=== PATIENT | female | born 1975 | race Two or more races ===

== ENCOUNTER 2021-05-22 17:37 | Inpatient (IN) | payer BC ==
[~2021-05-22] VITALS: Ht 152.4 cm; Wt 70.3 kg
[2021-05-22 18:22] LABS: *BILIRUBIN,URIN 1+ (NEGATIVE); *CLARITY,URINE CLEAR (CLEAR); *KETONES,URINE TRACE (NEGATIVE); *UROBILINOGEN,URINE 0.2 E.U./dl (NORMAL); LEUKOCYTE ESTERASE ,URINE NEGATIVE (NEGATIVE); NITRITE, URINE NEGATIVE (NEGATIVE); PH,URINE 5.5 (5.0-8.0); UGLUCOSE NEGATIVE (NEGATIVE)
[2021-05-22 18:24] LABS: *BLOOD, URINE TRACE INTACT (NEGATIVE); *COLOR,URINE DARK YELLOW (YELLOW)
[2021-05-22 18:33] LABS: *URINE HCG, QUAL NEGATIVE (NEGATIVE); BACTERIA,URINE FEW /HPF (NONE SEEN); SQUAMOUS EPITHELIAL CELL,UR FEW /HPF (NONE SEEN); WBC,URINE 0-3 /HPF (0-3)
--- NOTE | 2021-05-22 20:22 | NUR ---
ROOM AVAILABLE NOW IN THE ER. PATIENT PLACED IN ROOM 2B.
--- NOTE | 2021-05-22 20:25 | NUR ---
DR TOSCANO INTO EVAL PATIENT.
[2021-05-22] MEDS ORDERED: IV D5/ 0.9% NACL 1,000 ML IV ONE (20:45)
[2021-05-22] MEDS ORDERED: SWABABLE VALVE TRANSFER SET EA MC ONE (20:54)
[2021-05-22] MEDS ORDERED: IV NORMAL SALINE 250 ML IV ONE (20:54)
[2021-05-22] MEDS ORDERED: IOHEXOL 300MG/ML 100 ML INFUS..BTL ONE (20:54)
[2021-05-22 21:39] LABS: HEMATOCRIT 41.5 % (31.2-41.9); MEAN CORPUSCULAR HEMOGLOBIN 31.1 uug (24.7-32.8); MEAN CORPUSCULAR VOLUME 91.5 fL (75.5-95.3); PLATELET COUNT (AUTO) 345 K/uL (179-408)
[2021-05-22 21:45] LABS: CREATININE 0.8 mg/dL (0.6-1.3); POTASSIUM 3.6 mmol/L (3.5-5.1)
[2021-05-22 21:48] LABS: BILIRUBIN,DIRECT 0.2 mg/dL (0.0-0.2); BILIRUBIN,TOTAL 0.8 mg/dL (0.2-1.0); TOTAL PROTEIN, SERUM 7.4 g/dL (6.4-8.2)
--- NOTE | 2021-05-22 23:49 | NUR ---
Dr Valadez spoke with Dr Anderson for surgery consult.
[2021-05-22] MEDS ORDERED: PROG100C15 PO (23:54)
[2021-05-22] MEDS ORDERED: PRED1TAB PO (23:54)
[2021-05-22] MEDS ORDERED: PANT40TA49 PO (23:54)
[2021-05-23] MEDS ORDERED: predniSONE 10 MG TABLET PO ONE
--- NOTE | 2021-05-23 00:16 | NUR ---
Dr. Valadez on panel call with Dr. Anthony.
[2021-05-23] MEDS ORDERED: IV D5 1/2 NS 1000 ML 1,000 ML IV PRN (00:30)
[2021-05-23] MEDS ORDERED: MAGNESIUM HYDROXIDE 30 ML LIQUID UDC PO PRN (00:30)
[2021-05-23] MEDS ORDERED: Z GUARD REMEDY PASTE 57 GM TUBE TOP PRN (00:30)
[2021-05-23] MEDS ORDERED: MORPHINE SULFATE 4 MG/1 ML DISP.SYRIN IV PRN (00:30)
[2021-05-23] MEDS ORDERED: predniSONE 10 MG TABLET ONE (00:33)
[2021-05-23] MEDS: ONDANSETRON 4 MG/2 ML VIAL IV PRN ×2 (02:20→18:49)
[2021-05-23] MEDS ORDERED: ONDANSETRON 4 MG/2 ML VIAL ONE (02:25)
--- NOTE | 2021-05-23 04:01 | NUR ---
Pt in bed asleep, no distress noted
--- NOTE | 2021-05-23 07:28 | NUR ---
46 year old female received to room 301 for appendices pt isaxox4 vs are lavelle myles called for admission orders
[2021-05-23 07:36] VITALS: BP 121/77
[2021-05-23] MEDS: ACETAMINOPHEN 325 MG TABLET PO PRN (07:44)
[2021-05-23] MEDS ORDERED: PANTOPRAZOLE SODIUM 40 MG VIAL IV SCH (09:00)
[2021-05-23] MEDS: PIPERACILLIN SODIUM/TAZOBACTAM 3.375 G in IV DEXTROSE 5% 50 ML IV SCH ×3 (10:13→22:31)
[2021-05-23 11:00] VITALS: BP 133/71
--- NOTE | 2021-05-23 11:00 | NUR ---
pt went to or for surgery via bed in stable condition
[2021-05-23] MEDS ORDERED: MIDAZOLAM HCL 2 MG/2 ML VIAL ONE (11:04)
[2021-05-23] MEDS ORDERED: FENTANYL CITRATE 100 MCG/2 ML AMPUL ONE (11:04)
[2021-05-23] MEDS ORDERED: ROCURONIUM BROMIDE 50 MG/5 ML VIAL ONE (11:04)
[2021-05-23] MEDS ORDERED: SEVOFLURANE 250 ML BOTTLE ONE (11:12)
[2021-05-23] MEDS ORDERED: LIDOCAINE HCL 1% 20 ML VIAL ONE ×2 (11:12→12:52)
[2021-05-23] MEDS ORDERED: BUPIVACAINE/EPI PF 0.25% 30 ML VIAL ONE (11:13)
[2021-05-23] MEDS ORDERED: BACITRACIN/POLYMYXIN B OINT 15 GM TUBE ONE (11:14)
[2021-05-23] MEDS ORDERED: BUPIVACAINE/EPI PF 0.5% 10 ML VIAL ONE (12:52)
[2021-05-23] MEDS ORDERED: ONDANSETRON 4 MG/2 ML VIAL IV ONE (13:03)
[2021-05-23] MEDS ORDERED: GLYCOPYRROLATE 0.2 MG/ML VIAL IJ ONE (13:03)
[2021-05-23] MEDS ORDERED: KETOROLAC TROMETHAMINE 30 MG INJ IM ONE (13:03)
[2021-05-23] MEDS ORDERED: PROPOFOL 200 MG/20 ML BOTTLE IV ONE (13:03)
[2021-05-23] MEDS ORDERED: NEOSTIGMINE METHYLSULFATE 10 MG/10 ML VIAL IM ONE (13:03)
[2021-05-23] MEDS ORDERED: LIDOCAINE-MPF 2% 5 ML VIAL IJ ONE (13:03)
[2021-05-23] MEDS ORDERED: DEXAMETHASONE SOD PHOSPHATE 4 MG INJ IV ONE (13:03)
[2021-05-23] MEDS ORDERED: CEFAZOLIN 1 G VIAL IM ONE (13:03)
[2021-05-23] MEDS ORDERED: SEVOFLURANE 250 ML BOTTLE IH ONE (13:03)
[2021-05-23] MEDS ORDERED: SUCCINYLCHOLINE CHLORIDE 200 MG/10 ML VIAL IV ONE (13:03)
[2021-05-23] MEDS ORDERED: MEPERIDINE 25 MG/1 ML DISP.SYRIN ONE (13:16)
[2021-05-23] MEDS ORDERED: HYDROMORPHONE 1 MG/1 ML DISP.SYRIN ONE (13:30)
--- NOTE | 2021-05-23 14:20 | NUR ---
pt received from surgery via bed .vs are stable call light with in reach family at bed side
[2021-05-23] MEDS: GABAPENTIN 300 MG CAPSULE PO SCH (14:38)
[2021-05-23] MEDS: ACETAMINOPHEN 325 MG TABLET PO SCH (14:38)
[2021-05-23] MEDS: IBUPROFEN 800 MG TABLET PO SCH (14:38)
[2021-05-23] MEDS ORDERED: ACETAMINOPHEN 325 MG TABLET PO SCH (15:00)
[2021-05-23] MEDS ORDERED: GABAPENTIN 300 MG CAPSULE PO SCH (15:00)
[2021-05-23 15:07] VITALS: BP 119/73
[2021-05-23] MEDS: IV LACTATED RINGERS SOLUTION 1,000 ML IV PRN (16:14)
--- NOTE | 2021-05-23 20:00 | NUR ---
AWAKE ALERT FEMALE VISITOR AT BEDSIDE, NO COMPLAINTS, ABDOMINAL 3 SITES DRY AND INTACT. VITALS SIGN STABLE'
[2021-05-23 20:15] VITALS: BP 117/73
--- NOTE | 2021-05-24 | NUR ---
NAUSEAS , ZOFRAN GIVEN, CALLED DR CASTILLO FOR SLEEPING PILL AMBIEN 5 MG GIVEN. IN NO ACUTE DISTRESS.
[2021-05-24] MEDS: IBUPROFEN 800 MG TABLET PO SCH ×4 (00:21→22:29)
[2021-05-24] MEDS: GABAPENTIN 300 MG CAPSULE PO SCH ×4 (00:21→22:29)
[2021-05-24] MEDS: ACETAMINOPHEN 325 MG TABLET PO SCH ×4 (00:22→22:29)
[2021-05-24] MEDS: ONDANSETRON 4 MG/2 ML VIAL IV PRN ×2 (00:22→13:31)
[2021-05-24] MEDS: ZOLPIDEM 5 MG TABLET PO PRN ×2 (00:51→22:31)
[2021-05-24] MEDS: IV LACTATED RINGERS SOLUTION 1,000 ML IV PRN (02:10)
[2021-05-24] MEDS: PIPERACILLIN SODIUM/TAZOBACTAM 3.375 G in IV DEXTROSE 5% 50 ML IV SCH ×2 (03:37→09:40)
[2021-05-24 04:25] VITALS: BP 116/69
--- NOTE | 2021-05-24 06:44 | NUR ---
SLEPT MOST OF THE NITE. NO VOMITING NOTED.
[2021-05-24 08:03] LABS: HEMATOCRIT 36.7 % (31.2-41.9); MEAN CORPUSCULAR HEMOGLOBIN 31.4 uug (24.7-32.8); MEAN CORPUSCULAR VOLUME 90.9 fL (75.5-95.3); PLATELET COUNT (AUTO) 348 K/uL (179-408)
[2021-05-24] MEDS: PANTOPRAZOLE SODIUM 40 MG TABLET.DR PO SCH (08:05)
[2021-05-24] MEDS: predniSONE 1 MG TABLET PO SCH (08:17)
[2021-05-24 08:25] LABS: CREATININE 0.7 mg/dL (0.6-1.3); MAGNESIUM 2.1 mg/dL (1.8-2.4); PHOSPHOROUS 3.6 mg/dL (2.5-4.9); POTASSIUM 3.7 mmol/L (3.5-5.1)
[2021-05-24] MEDS ORDERED: PROGESTERONE 100 MG PO SCH (09:00)
[2021-05-24] MEDS ORDERED: [UNRECOGNIZED DRUG - OTHER] PO SCH (09:00)
[2021-05-24] MEDS ORDERED: Medication Not On Formulary EA (Progesterone,Micronized (Prometrium) 100 MG) PO SCH (09:00)
[2021-05-24] MEDS ORDERED: LACTULOSE 20 G/30 ML LIQUID UDC PO ONE (09:15)
[2021-05-24] MEDS: MIRALAX 17 GM POWD.PACK PO SCH (09:30)
[2021-05-24] MEDS: DOCUSATE SODIUM 100 MG CAPSULE PO SCH ×2 (09:31→21:00)
[2021-05-24] MEDS ORDERED: POTA-10 PO (09:39)
[2021-05-24] MEDS ORDERED: AMLO-212 PO (09:39)
[2021-05-24] MEDS: POTASSIUM CHLORIDE 10 MEQ TAB.PRT.SR PO SCH ×2 (10:23→16:04)
[2021-05-24] MEDS: HYDROCODONE/APAP 5-325MG TABLET PO PRN ×2 (10:23→21:51)
[2021-05-24] MEDS: AMLODIPINE 5 MG TABLET PO SCH (10:23)
[2021-05-24 11:24] VITALS: BP 143/86
--- NOTE | 2021-05-24 11:29 | NUR ---
pt walk in the hallway passing gas tolerated well
[2021-05-24] MEDS ORDERED: OXYC-133 PO (12:57)
[2021-05-24] MEDS ORDERED: DOCU-141 PO (12:57)
[2021-05-24 16:00] VITALS: BP 128/75
[2021-05-24] MEDS: PIPERACILLIN SODIUM/TAZOBACTAM 3.375 G in IV DEXTROSE 5% 100 ML IV SCH (17:10)
[2021-05-24] MEDS ORDERED: HYDROMORPHONE 1 MG/1 ML DISP.SYRIN IV PRN (17:30)
[2021-05-24] MEDS ORDERED: LOPERAMIDE HCL 2 MG CAPSULE PO ONE (17:30)
--- NOTE | 2021-05-24 19:30 | NUR ---
RECEIVED PT AWAKE, ALERT AND ORIENTEDX4. PT IN NO ACUTE DISTRESS. FAMILY AT BEDSIDE. SAFETY AND COMFORT PROVIDED. IV INTACT. WILL CONTINUE TO MONITOR.
[2021-05-24 22:30] VITALS: BP 131/81
[2021-05-25] MEDS: PIPERACILLIN SODIUM/TAZOBACTAM 3.375 G in IV DEXTROSE 5% 100 ML IV SCH ×2 (01:26→10:00)
[2021-05-25] MEDS: GABAPENTIN 300 MG CAPSULE PO SCH (06:23)
[2021-05-25] MEDS: IBUPROFEN 800 MG TABLET PO SCH (06:23)
[2021-05-25] MEDS: ACETAMINOPHEN 325 MG TABLET PO SCH (06:23)
[2021-05-25 06:39] VITALS: BP 141/88
--- NOTE | 2021-05-25 06:49 | NUR ---
PT SLEPT INTERMITTENTLY. IV INTACT. PT GIVEN AMBIEN PRN AT 2231H FOR SLEEP AND NORCO PRN AT 2151H FOR PAIN. SAFETY AND COMFORT PROVIDED. ALL NEEDS ARE MET. WILL ENDORSE TO INCOMING NURSE FOR CONTINUITY OF CARE.
[2021-05-25] MEDS: DOCUSATE SODIUM 100 MG CAPSULE PO SCH (09:00)
[2021-05-25] MEDS: MIRALAX 17 GM POWD.PACK PO SCH (09:00)
[2021-05-25] MEDS: POTASSIUM CHLORIDE 10 MEQ TAB.PRT.SR PO SCH (09:36)
[2021-05-25] MEDS: PANTOPRAZOLE SODIUM 40 MG TABLET.DR PO SCH (09:36)
[2021-05-25] MEDS: AMLODIPINE 5 MG TABLET PO SCH (09:36)
[2021-05-25] MEDS: predniSONE 1 MG TABLET PO SCH (09:37)
[2021-05-25 12:00] VITALS: BP 113/52
--- NOTE | 2021-05-25 12:00 | NUR ---
PATIENT IS ALERT ORIENTED DENIES PAIN OR DISCOMFORTS ABDOMINAL INCISION S/P LAP APPY INTACT CHANGED THE ONE ON THE UMBILICAL AREA WITH STAPLE INTACT PATIENT IS FOR DISCHARGE TODAY HE IS AWARE AND STATED HER WILL BE HERE THIS AFTERNOON TO PICK HER UP.
[2021-05-25] MEDS: ACETAMINOPHEN 325 MG TABLET PO PRN (13:24)
--- NOTE | 2021-05-25 15:30 | NUR ---
PATIENT DISCHARGED PICKED UP BY HER LEONCIO IN SATISFACTORY CONDITION WITH DISCHARGE INSTRUCTIONS PRESCRIPTIONS AND ALL HER PERSONAL BELONGINGS SHE WAS INSTRUCTED TO CALL DR CASTRO OFFICE FOR A FOLLOW UP APPOINTMENT IN ONE WEEK AND SHE EXPRESSED UNDERSTANDING.
== END 2021-05-25 15:30 | disposition home or self-care (01) | DRG 337 ==
LOC: EDSEX 17:37 → ER 18:04 → MEDSURG3 05-23 06:16
PROVIDERS: ADMIT Internal Medicine; ATTEND Internal Medicine
PROC: 0DTJ4ZZ Resection of Appendix, Percutaneous Endoscopic Approach (ICD-10-PCS; principal; 2021-05-21)
PROC: 0DNW4ZZ Release Peritoneum, Percutaneous Endoscopic Approach (ICD-10-PCS; 2021-05-21)
DX: K35.30 Acute appendicitis with localized peritonitis, without perforation or gangrene (principal); M32.9 Systemic lupus erythematosus, unspecified; M79.7 Fibromyalgia; I10 Essential (primary) hypertension; Z87.442 Personal history of urinary calculi; N73.6 Female pelvic peritoneal adhesions (postinfective); Z20.822 Contact with and (suspected) exposure to COVID-19
CPT/HCPCS: 36415; 71045; 76856; 83690; 83735; 84100; 84703; 85025; 85730; 93005; A4663; C9113; G0378; J0330; J0690; J1100; J1170; J1885; J2175; J2250; J2270; J2405; J2543; J3010; J3490; J7040; J7042; J7050; J7060; J7120; J7512; Q9967

== ENCOUNTER 2022-03-25 08:17 | Emergency (ER) | payer BC ==
[~2022-03-25] VITALS: Ht 152.4 cm; Wt 72.6 kg
[~2022-03-25 08:17] MED LIST: AMLO-212 PO; DOCU-141 PO; PANT40TA49 PO; POTA-10 PO; PRED1TAB PO; PROG100C15 PO
[2022-03-25] MEDS ORDERED: KETOROLAC TROMETHAMINE 15 MG INJ IVP ONE (08:45)
[2022-03-25] MEDS ORDERED: ONDANSETRON 4 MG/2 ML VIAL IV ONE (08:45)
[2022-03-25] MEDS ORDERED: IV NORMAL SALINE 1000 ML BAG IV ONE (08:45)
[2022-03-25 08:47] LABS: HEMATOCRIT 39.4 % (31.2-41.9); MEAN CORPUSCULAR HEMOGLOBIN 29.5 uug (24.7-32.8); MEAN CORPUSCULAR VOLUME 88.3 fL (75.5-95.3); PLATELET COUNT (AUTO) 344 K/uL (179-408)
--- NOTE | 2022-03-25 08:48 | NUR ---
OLIVE BAILEY AT BEDSIDE FOR EVALUATION.
[2022-03-25 09:14] LABS: BILIRUBIN,DIRECT 0.1 mg/dL (0.0-0.2); BILIRUBIN,TOTAL 0.7 mg/dL (0.2-1.0); CREATININE 0.9 mg/dL (0.6-1.3); POTASSIUM 3.4 mmol/L (3.5-5.1); TOTAL PROTEIN, SERUM 7.3 g/dL (6.4-8.2)
[2022-03-25] MEDS ORDERED: ONDANSETRON 4 MG/2 ML VIAL ONE (09:20)
[2022-03-25] MEDS ORDERED: KETOROLAC TROMETHAMINE 30 MG INJ ONE (09:21)
[2022-03-25 09:42] LABS: *BILIRUBIN,URIN NEGATIVE (NEGATIVE); *CLARITY,URINE CLEAR (CLEAR); *COLOR,URINE YELLOW (YELLOW); *KETONES,URINE NEGATIVE (NEGATIVE); *UROBILINOGEN,URINE 0.2 E.U./dl (NORMAL); LEUKOCYTE ESTERASE ,URINE NEGATIVE (NEGATIVE); NITRITE, URINE NEGATIVE (NEGATIVE); PH,URINE 5.5 (5.0-8.0); UGLUCOSE NEGATIVE (NEGATIVE)
[2022-03-25 09:43] LABS: *BLOOD, URINE TRACE (NEGATIVE); *URINE HCG, QUAL NEGATIVE (NEGATIVE)
[2022-03-25 11:49] LABS: SQUAMOUS EPITHELIAL CELL,UR MODERATE /HPF (NONE SEEN); WBC,URINE 0-3 /HPF (0-3)
[2022-03-25 11:50] LABS: BACTERIA,URINE FEW /HPF (NONE SEEN)
--- NOTE | 2022-03-25 13:11 | NUR ---
LAB RESULTS REVIEWED BY DR BAILEY WITH PATIENT. DISCHARGED IN STABLE AND IMPROVED CONDITION.
[2022-03-25 13:12] VITALS: BP 128/88
== END 2022-03-25 13:13 | disposition home or self-care (01) ==
LOC: ER 08:17
DX: R10.9 Unspecified abdominal pain (principal); Z87.442 Personal history of urinary calculi; M32.9 Systemic lupus erythematosus, unspecified; M79.7 Fibromyalgia; Z88.1 Allergy status to other antibiotic agents; Z88.2 Allergy status to sulfonamides
CPT/HCPCS: 99284; 74176; 96374; 96361; 96375; 80076; 80048; 81001; 84703; 83690; 85025; 36415; J1885; J2405; J7040; A4663

== ENCOUNTER 2023-04-29 11:33 | Emergency (ER) | payer BC ==
[~2023-04-29] VITALS: Ht 152.4 cm; Wt 68.0 kg
[2023-04-29] MEDS ORDERED: ACETAMINOPHEN 325 MG TABLET PO ONE (12:00)
[2023-04-29 12:16] LABS: BASOPHILS # (AUTO) 0.1 K/UL (0.0-0.2); BASOPHILS % (AUTO) 0.8 % (0.0-2.0); EOSINOPHILS # (AUTO) 0.1 K/uL (0.0-0.7); EOSINOPHILS % (AUTO) 0.9 % (0.0-7.0); HEMATOCRIT 40.6 % (31.2-41.9); HEMOGLOBIN 13.2 g/dL (10.9-14.3); LYMPHOCYTES # (AUTO) 1.5 K/uL (0.8-4.8); LYMPHOCYTES % (AUTO) 19.4 % (20.5-51.5); MEAN CORPUSCULAR HGB CONC 32 g/dL (32.3-35.6); MEAN CORPUSCULAR VOLUME 89.5 fL (75.5-95.3); MONOCYTES # (AUTO) 0.5 K/uL (0.1-1.30); MONOCYTES % (AUTO) 6.7 % (0.0-11.0); NEUTROPHILS # (AUTO) 5.7 K/uL (1.8-8.9); NEUTROPHILS % (AUTO) 72.2 % (38.5-71.5); PLATELET COUNT (AUTO) 340 K/uL (179-408); RED BLOOD CELL COUNT(AUTO) 4.54 MIL/uL (3.63-4.92); RED CELL DISTRIBUTION WIDTH 14.2 % (12.3-17.7)
[2023-04-29 12:19] LABS: DIFFERENTIAL COMMENT 1
[2023-04-29 12:24] LABS: CALCIUM 8.7 mg/dL (8.5-10.1); CREATININE 0.8 mg/dL (0.6-1.3); POTASSIUM 3.2 mmol/L (3.5-5.1)
[2023-04-29 12:24] LABS: *CLARITY,URINE SLIGHTLY CLOUDY (CLEAR); *COLOR,URINE YELLOW (YELLOW); *KETONES,URINE NEGATIVE (NEGATIVE); *PROTEIN,URINE 2+ (NEGATIVE); *UROBILINOGEN,URINE 0.2 E.U./dl (NORMAL); LEUKOCYTE ESTERASE ,URINE 1+ (NEGATIVE); NITRITE, URINE NEGATIVE (NEGATIVE); UGLUCOSE NEGATIVE (NEGATIVE)
[2023-04-29 12:25] LABS: *BILIRUBIN,URIN 1+ (NEGATIVE); *BLOOD, URINE TRACE (NEGATIVE)
[2023-04-29 12:30] LABS: ALBUMIN 3.4 g/dL (3.4-5.0); BILIRUBIN,TOTAL 0.6 mg/dL (0.2-1.0)
[2023-04-29] MEDS ORDERED: ACETAMINOPHEN ES 500 MG TABLET ONE (12:38)
[2023-04-29 12:50] LABS: *URINE HCG, QUAL NEGATIVE (NEGATIVE)
[2023-04-29 12:55] LABS: BACTERIA,URINE MANY /HPF (NONE SEEN); RBC,URINE 0-3 /HPF (0-3); SQUAMOUS EPITHELIAL CELL,UR MANY /HPF (NONE SEEN); WBC,URINE 20-50 /HPF (0-3)
[2023-04-29 14:57] VITALS: BP 133/98; TEMP 98.5; O2SAT 99
== END 2023-04-29 14:57 | disposition home or self-care (01) ==
LOC: ER 11:33
DX: S60.012A Contusion of left thumb without damage to nail, initial encounter (principal); R07.89 Other chest pain; V49.9XXA Car occupant (driver) (passenger) injured in unspecified traffic accident, initial encounter; Y93.89 Activity, other specified; Y92.410 Unspecified street and highway as the place of occurrence of the external cause; Y99.8 Other external cause status
CPT/HCPCS: 36415; 71260; 73110; 73130; 84703; 85025; A4606; A4663; A9150

== ENCOUNTER 2024-04-09 07:50 | Emergency (ER) | payer BC ==
[~2024-04-09] VITALS: Ht 152.4 cm; Wt 72.6 kg
[2024-04-09] MEDS ORDERED: HYDROMORPHONE 1 MG/1 ML DISP.SYRIN ONE ×2 (08:10→12:07)
[2024-04-09] MEDS ORDERED: ONDANSETRON 4 MG/2 ML VIAL ONE ×2 (08:10→09:49)
[2024-04-09 08:14] LABS: BASOPHILS # (AUTO) 0.4 K/UL (0.0-0.2); BASOPHILS % (AUTO) 3.4 % (0.0-2.0); DIFFERENTIAL COMMENT 0; EOSINOPHILS # (AUTO) 0.1 K/uL (0.0-0.7); EOSINOPHILS % (AUTO) 1.1 % (0.0-7.0); HEMATOCRIT 42.3 % (31.2-41.9); HEMOGLOBIN 14.1 g/dL (10.9-14.3); LYMPHOCYTES # (AUTO) 1.9 K/uL (0.8-4.8); MEAN CORPUSCULAR HEMOGLOBIN 29.6 uug (24.7-32.8); MEAN CORPUSCULAR HGB CONC 33 g/dL (32.3-35.6); MEAN CORPUSCULAR VOLUME 88.8 fL (75.5-95.3); MONOCYTES # (AUTO) 0.5 K/uL (0.1-1.30); MONOCYTES % (AUTO) 4.5 % (0.0-11.0); NEUTROPHILS # (AUTO) 8.5 K/uL (1.8-8.9); PLATELET COUNT (AUTO) 380 K/uL (179-408); RED BLOOD CELL COUNT(AUTO) 4.76 MIL/uL (3.63-4.92); WHITE BLOOD COUNT (AUTO) 11.4 K/uL (3.8-11.8)
[2024-04-09 08:16] LABS: *BILIRUBIN,URIN NEGATIVE (NEGATIVE); *BLOOD, URINE 1+ (NEGATIVE); *CLARITY,URINE CLEAR (CLEAR); *COLOR,URINE YELLOW (YELLOW); *KETONES,URINE TRACE (NEGATIVE); *PROTEIN,URINE NEGATIVE (NEGATIVE); *UROBILINOGEN,URINE 0.2 E.U./dl (NORMAL); LEUKOCYTE ESTERASE ,URINE TRACE (NEGATIVE); NITRITE, URINE NEGATIVE (NEGATIVE); UGLUCOSE NEGATIVE (NEGATIVE)
[2024-04-09] MEDS: ONDANSETRON 4 MG/2 ML VIAL IV ONE ×2 (08:22→09:59)
[2024-04-09] MEDS: IV NORMAL SALINE 1000 ML BAG IV ONE (08:22)
[2024-04-09] MEDS: HYDROMORPHONE 1 MG/1 ML DISP.SYRIN IV ONE ×2 (08:22→12:15)
[2024-04-09] MEDS ORDERED: KETOROLAC TROMETHAMINE 30 MG INJ ONE (08:23)
[2024-04-09] MEDS: KETOROLAC TROMETHAMINE 30 MG INJ IVP ONE (08:27)
[2024-04-09 08:28] LABS: ALBUMIN 3.5 g/dL (3.4-5.0); BILIRUBIN,DIRECT 0.1 mg/dL (0.0-0.2); BILIRUBIN,TOTAL 1.2 mg/dL (0.2-1.0); CALCIUM 9.1 mg/dL (8.5-10.1); CREATININE 1.1 mg/dL (0.6-1.3); POTASSIUM 3.7 mmol/L (3.5-5.1); TOTAL PROTEIN, SERUM 7.6 g/dL (6.4-8.2)
[2024-04-09 08:46] LABS: BACTERIA,URINE MODERATE /HPF (NONE SEEN); SQUAMOUS EPITHELIAL CELL,UR MANY /HPF (NONE SEEN)
[2024-04-09] MEDS ORDERED: PROCHLORPERAZINE EDISYLATE 10 MG/2 ML VIAL ONE ×2 (10:43→12:44)
[2024-04-09] MEDS: PROCHLORPERAZINE EDISYLATE 10 MG/2 ML VIAL IV ONE ×2 (10:48→12:47)
[2024-04-09] MEDS ORDERED: HYDR-3980 PO (12:01)
[2024-04-09] MEDS ORDERED: KETO10TA2 PO (12:01)
[2024-04-09] MEDS ORDERED: PROC10TA29 PO (12:01)
[2024-04-09 14:02] VITALS: BP 141/79; O2SAT 100
== END 2024-04-09 14:03 | disposition home or self-care (01) ==
LOC: ER 07:50
DX: N13.2 Hydronephrosis with renal and ureteral calculous obstruction (principal); R10.2 Pelvic and perineal pain; M79.7 Fibromyalgia; M32.9 Systemic lupus erythematosus, unspecified; Z90.49 Acquired absence of other specified parts of digestive tract; Z79.52 Long term (current) use of systemic steroids; Z79.899 Other long term (current) drug therapy; Z79.890 Hormone replacement therapy; Z88.1 Allergy status to other antibiotic agents; Z88.2 Allergy status to sulfonamides
CPT/HCPCS: 99285; 74176; 96374; 96375; 96361; 80076; 80048; 81001; 85025; 84702; 36415; 96376; J1885; J2405 ×2; J0780 ×2; J1170 ×2; J7040; A4606; A4663

== ENCOUNTER 2024-05-29 11:57 | Emergency (ER) | payer BC ==
[~2024-05-29] VITALS: Ht 152.4 cm; Wt 74.8 kg
[~2024-05-29 11:57] MED LIST changes: +HYDR-3980 PO; +KETO10TA2 PO; +PROC10TA29 PO
[2024-05-29] MEDS ORDERED: PIPERACILLIN/TAZOBACTAM/D5W 50 ML IV ONE (13:14)
[2024-05-29] MEDS ORDERED: KETOROLAC TROMETHAMINE 15 MG INJ ONE (13:14)
[2024-05-29 13:26] LABS: BASOPHILS # (AUTO) 0.1 K/UL (0.0-0.2); BASOPHILS % (AUTO) 1.4 % (0.0-2.0); EOSINOPHILS # (AUTO) 0.1 K/uL (0.0-0.7); EOSINOPHILS % (AUTO) 0.8 % (0.0-7.0); HEMATOCRIT 42.7 % (31.2-41.9); HEMOGLOBIN 14.3 g/dL (10.9-14.3); LYMPHOCYTES # (AUTO) 1.6 K/uL (0.8-4.8); LYMPHOCYTES % (AUTO) 15.6 % (20.5-51.5); MEAN CORPUSCULAR HEMOGLOBIN 29.4 uug (24.7-32.8); MEAN CORPUSCULAR HGB CONC 34 g/dL (32.3-35.6); MEAN CORPUSCULAR VOLUME 87.5 fL (75.5-95.3); MONOCYTES # (AUTO) 0.5 K/uL (0.1-1.30); MONOCYTES % (AUTO) 4.8 % (0.0-11.0); NEUTROPHILS % (AUTO) 77.4 % (38.5-71.5); PLATELET COUNT (AUTO) 374 K/uL (179-408); RED BLOOD CELL COUNT(AUTO) 4.88 MIL/uL (3.63-4.92); RED CELL DISTRIBUTION WIDTH 13.9 % (12.3-17.7); WHITE BLOOD COUNT (AUTO) 10.3 K/uL (3.8-11.8)
[2024-05-29 13:35] LABS: CALCIUM 9.2 mg/dL (8.5-10.1); CREATININE 0.8 mg/dL (0.6-1.3); POTASSIUM 3.4 mmol/L (3.5-5.1)
[2024-05-29] MEDS ORDERED: DILT-3 PO (13:38)
[2024-05-29] MEDS ORDERED: BELI200A SUBCUT (13:38)
[2024-05-29] MEDS ORDERED: POTA20PA34 PO (13:38)
[2024-05-29] MEDS ORDERED: PHEN105C47 PO (13:38)
[2024-05-29] MEDS ORDERED: LOSA50TA39 PO (13:38)
[2024-05-29 13:41] LABS: ALBUMIN 3.5 g/dL (3.4-5.0); BILIRUBIN,DIRECT 0.1 mg/dL (0.0-0.2); BILIRUBIN,TOTAL 0.7 mg/dL (0.2-1.0); DIFFERENTIAL COMMENT 1; TOTAL PROTEIN, SERUM 7.7 g/dL (6.4-8.2)
[2024-05-29] MEDS: KETOROLAC TROMETHAMINE 15 MG INJ IVP ONE (13:42)
[2024-05-29] MEDS: PIPERACILLIN SODIUM/TAZOBACTAM 3.375 G in IV DEXTROSE 5% 50 ML IV ONE (13:42)
[2024-05-29] MEDS: IV NORMAL SALINE 1000 ML BAG IV ONE (13:42)
[2024-05-29] MEDS ORDERED: IOHEXOL 300MG/ML 100 ML INFUS..BTL ONE (13:50)
[2024-05-29] MEDS ORDERED: SWABABLE VALVE TRANSFER SET EA MC ONE (13:50)
[2024-05-29] MEDS ORDERED: IV NORMAL SALINE 250 ML IV ONE (13:50)
[2024-05-29] MEDS ORDERED: AMOX-430 PO (15:27)
[2024-05-29] MEDS ORDERED: IBUP-1955 PO (15:28)
[2024-05-29 16:47] VITALS: BP 153/92; TEMP 98.8; O2SAT 98
== END 2024-05-29 16:48 | disposition home or self-care (01) ==
LOC: ER 11:57
DX: J02.9 Acute pharyngitis, unspecified (principal); R59.1 Generalized enlarged lymph nodes; R51.9 Headache, unspecified; R94.31 Abnormal electrocardiogram [ECG] [EKG]; R06.00 Dyspnea, unspecified; M54.2 Cervicalgia; M32.9 Systemic lupus erythematosus, unspecified; M79.7 Fibromyalgia; Z79.52 Long term (current) use of systemic steroids; Z79.899 Other long term (current) drug therapy; Z88.1 Allergy status to other antibiotic agents; Z88.2 Allergy status to sulfonamides; Z90.49 Acquired absence of other specified parts of digestive tract; Z86.79 Personal history of other diseases of the circulatory system; Z87.19 Personal history of other diseases of the digestive system
CPT/HCPCS: 36415; 70491; 71045; 83605; 85025; 85730; 87040; A4606; A4663; J1885; J2543; J7040; Q9967